=== PATIENT | male | born 1995 | race Caucasian/White ===

== ENCOUNTER 2022-08-06 14:28 | Day surgery (SDC) | payer BC, SELFPAY ==
[2022-08-06] VITALS (30 sets, daily range): BP systolic 116–142; BP diastolic 63–86; PULSE 64–168; RESP 16–18; TEMP 36.4–37; O2SAT 84–100; BMI 22.5
--- NOTE | 2022-08-06 15:42 | CRLHL7_ITS ---
For Patients: As a result of the Century Cures Act, medical imaging exams and procedure reports are released immediately into your electronic medical record. You may view this report before your referring provider. If you have questions, please contact your health care provider. INDICATION: Supraumbilical midline hernia. TECHNIQUE: CT abdomen and pelvis without contrast. COMPARISON: None. FINDINGS: Lower chest: No focal consolidation. Evaluation of solid organs is limited secondary to lack of IV contrast administration. Liver: No suspicious focal hepatic lesion. Gallbladder and bile ducts: Unremarkable. Pancreas: Unremarkable. Spleen: Unremarkable. Adrenal glands: Unremarkable. Kidneys: No renal calculi or hydronephrosis bilaterally. Retroperitoneum: No lymphadenopathy. Bowel and mesentery: Normal appendix. Supraumbilical ventral abdominal wall hernia with narrow neck containing short-segment of small bowel, with obstructive effect resulting in upstream small bowel obstruction. Mild mesenteric edema, likely reactive. No pneumoperitoneum. Bladder: Unremarkable for degree of distension. Reproductive organs: No prostatomegaly. Pelvic lymph nodes: No lymphadenopathy. Vessels: Unremarkable for unenhanced study. Abdominal wall: Ventral abdominal hernia as above. Bones: No suspicious/aggressive focal osseous lesion. IMPRESSION: Small-bowel containing supraumbilical ventral abdominal wall hernia with a narrow neck, resulting in high-grade small bowel obstruction. Please note that all CT scans at this facility use dose modulation, iterative reconstruction, and/or weight-based dosing when appropriate to reduce radiation dose to as low as reasonably achievable. Dictated by Michael Murphy MD @ 08/06/2022 5:10:31 PM (Electronically Signed)
--- NOTE | 2022-08-06 16:29 | ED.ABDPAIN ---
HPI - Abdominal Pain General Chief Complaint: Abdominal Pain Stated Complaint: Hernia Time Seen by Provider: 08/06/22 14:58 History of Present Illness HPI narrative: 27-year-old young man presenting to the emergency department with complaint of mid abdominal pain consistent with history of ventral wall supraumbilical hernia. Started to have more pain this morning and just has not really gone away. Sharp, colicky. Is having some ache in his low back as well. Usually he can reduce this fairly easily on his own, but not today. No radicular symptoms into extremities. He did manage a bowel movement earlier today but this did not change any of his discomfort. He was evaluated in Clinic[facility]Urgent Care in [place] where he works and apparently a surgeon was curb sided recommending to be seen in emergency department for potential imaging. He has had this hernia known for years and has been more uncomfortable more frequently over the last week or so. is not nauseated, has not been vomiting. No fever. Back discomfort is not exacerbated with movement. Has not passed gas over the last 3 or 4 hours now. Related Data Home Medications Medication Instructions Recorded Confirmed omeprazole 40 mg capsule,delayed 40 mg PO DAILY 08/06/22 08/06/22 release Allergies Allergy/AdvReac Type Severity Reaction Status Date / Time No Known Drug Allergies Allergy Verified 08/06/22 14:43 Review of Systems Status of ROS Reports: 6 or more systems reviewed and unremarkable except as noted in History and below [facility] Social History Smoking Status: Never smoker Do you use any of these nicotine containing products: None Second hand tobacco smoke exposure: No How often do you have a drink containing alcohol: 2-3 times a week How many standard drinks containing alcohol do you have on a typical day: 1 or 2 AUDIT-C Alcohol total score: 3 Non-prescribed substance use: denies use Exam Narrative: Exam Narrative: Pleasant. NAD. Breathing easily. Sits and transitions without difficulty. Lungs appear to be clear. Skin is warm and dry. Well-perfused peripherally. Heart is in a regular rate and rhythm. Abdomen does appear to have some bowel sounds. Distant. There is a racquetball sized soft swelling in the mid ventral abdomen superior to the umbilicus. No inflammatory changes. Skin is quite dry. Not particularly tender to palpation. Const: Vital Signs, click to edit/add: Vital Signs - 24 hr 08/06/22 14:39 Temperature 98.4 F Pulse Rate [Pulse Oximeter] 77 Respiratory Rate 18 Blood Pressure [Le ft Upper Arm] 131/81 Pulse Oximetry 96 Oxygen Delivery Me thod Room Air Documenting provider has reviewed patient's vital signs: yes Course Vital Signs Vital signs: Initial Vital Signs Temperature 98.4 F 08/06/22 14:39 Temperature Source Temporal Artery Scan 08/06/22 14:39 Pulse Rate 77 08/06/22 14:39 Respiratory Rate 18 08/06/22 14:39 Blood Pressure 131/81 08/06/22 14:39 Blood Pressure Mean 97 08/06/22 14:39 Blood Pressure Position Supine 08/06/22 14:39 Pulse Oximetry 96 08/06/22 14:39 Oxygen Delivery Method Room Air 08/06/22 14:39 Vital Signs Temperature 98.4 F 08/06/22 14:39 Pulse Rate 77 08/06/22 14:39 Respiratory Rate 18 08/06/22 14:39 Blood Pressure 131/81 08/06/22 14:39 Pulse Oximetry 96 08/06/22 14:39 Oxygen Delivery Method Room Air 08/06/22 14:39 Temperature 98.4 F 08/06/22 14:39 Pulse Rate 77 08/06/22 14:39 Respiratory Rate 18 08/06/22 14:39 Blood Pressure 131/81 08/06/22 14:39 Pulse Oximetry 96 08/06/22 14:39 Oxygen Delivery Method Room Air 08/06/22 14:39 MDM - Abdominal Pain MDM Narrative Medical decision making narrative: I did spend some time trying to reduce what appears to be a ventral abdominal hernia. Brad tolerated this quite well. Was able to palpate quite firmly but unable to reduce this. Subsequently called to our surgeon to arrange next step in cares. Will proceed per their recommendation with CT imaging. I had initially ordered abdomen CT. 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 By my read images do show bowel extending through a little right of midline opening. This would look to be an incarceration resulting in sbo. I do not see much inflammatory changes. There is rectosigmoid gas. Pending Radiology over-read. I did return to attempt again reduction moving a bit more right of center but without success. Our surgeon is heading in having reviewed these images noting incarcerated hernia and will be arriving to evaluate further. Place IV normal saline anticipation of potential intervention. Does report increased pain since my manipulation earlier. Radiology over-read IMPRESSION: Small-bowel containing supraumbilical ventral abdominal wall hernia with a narrow neck, resulting in high-grade small bowel obstruction. Anticipating going to surgery shortly for reduction/repair. Discharge Plan Discharge Clinical Impression: Incarcerated hernia, Small bowel obstruction Patient Disposition: Admitted As Inpatient Condition: Stable
[2022-08-06] MEDS: 0.9 % SODIUM CHLORIDE 1000 ml 1,000 ML IV (16:45)
--- NOTE | 2022-08-06 17:25 | P.GSHP_ITS ---
History of Present Illness History of Present Illness Date Seen: 08/06/22 Chief complaint: Hernia Narrative: Brad Peace is a 27 year old male who presented to the emergency department with increasing pain over a known abdominal hernia. He states that he has known that he has a hernia just above his belly button for years and that usually he is able to reduce it easily himself. This morning he woke up, felt the bulge and noted some increased tenderness to the area. He did try to reduce the hernia, but was unsuccessful. He tried to go to the bathroom, as he thought he might be a little constipated and he was able to have a bowel movement, but this did not improve his symptoms. He does report some nausea, denies any emesis. He does state that he has been unable to pass gas like he normally does. His has however had several bowel movements with his last bowel movement about 4 hours earlier. He last ate around noon. No previous surgical history. He is a nonsmoker. Review of Systems Status of ROS: Reports: 6 or more systems reviewed and unremarkable except as noted in History and below [facility] Social History Smoking Status: Never smoker Do you use any of these nicotine containing products: None Second hand tobacco smoke exposure: No How often do you have a drink containing alcohol: 2-3 times a week How many standard drinks containing alcohol do you have on a typical day: 1 or 2 AUDIT-C Alcohol total score: 3 Non-prescribed substance use: denies use Meds Home Medications and Allergies Home Medications Medication Instructions Recorded Confirmed Type omeprazole 40 mg capsule,delayed 40 mg PO DAILY 08/06/22 08/06/22 History release Allergies Allergy/AdvReac Type Severity Reaction Status Date / Time No Known Drug Allergies Allergy Verified 08/06/22 14:43 Exam Narrative: Exam Narrative: General: Alert and oriented, no acute distress. Nontoxic in appearance Respiratory: Equal breath rise bilaterally, maintained on room air CV: Regular rhythm rate, well perfused Abdomen: Soft, tender to palpation supraumbilical where a hernia sac is palpated. A reduction at bedside was attempted and not successful. There is tenderness during manipulation of the hernia sac. No overlying skin changes. No guarding or rebound. Const: Vital Signs, click to edit/add: Vital Signs - 24 hr 08/06/22 14:39 Temperature 98.4 F Pulse Rate [Pulse Oximeter] 77 Respiratory Rate 18 Blood Pressure [Le ft Upper Arm] 131/81 Pulse Oximetry 96 Oxygen Delivery Me thod Room Air Results Results Abdomen CT scan report/results: report reviewed and image reviewed Assessment and Plan Assessment and plan (1) Incarcerated hernia: Status: Acute Plan Patient is an otherwise healthy 27-year-old male who presents with evidence of an incarcerated hernia and associated high-grade small-bowel obstruction. Vital signs stable and patient is nontoxic in appearance. Patient has been symptomatic since this morning. A reduction was attempted at bedside, but unsuccessful. Risks and benefits of operative intervention were discussed at length with the patient. Risks included but was not limited to: Bleeding, infection, risk of damage to surrounding structures, possible need for additional procedures, risk of recurrence and postoperative complications such as pneumonia, pulmonary emboli or [place]. we also reviewed the expected recovery, specifically we discussed the lifting restrictions after any hernia repair of no lifting greater than 20 lb for 6 weeks. Due to the evidence of incarcerated small bowel, I also reviewed with the patient the possibility of a small-bowel resection. If a resection is needed, or there is evidence of compromised bowel he does understand that I would elect to not use mesh in that situation given the high risk of infection. We reviewed the recurrence rate of a hernia with primary repair (33%) vs with mesh (5%). All questions and concerns were addressed with the patient agreeing to proceed. -OR for open ventral hernia repair, possible use of mesh, possible small bowel resection. - plan for extended recovery in Med Surg post op - pre op Antibiotics - NPO, IVF
[2022-08-06] MEDS: ONDANSETRON 2 MG/ML inj 4 MG IVP (17:42)
[2022-08-06 18:09] LABS: SARS PCR* Negative SARS-CoV-2 (Negative)
[2022-08-06] MEDS: LACTATED RINGERS 1000 ML 1,000 ML 100 ML IV (18:15)
[2022-08-06] MEDS: CEFAZOLIN 2 GM INJ IVP (18:25)
[2022-08-06] MEDS: BUPIVACAINE 0.25% 30 ML INJECTION (19:00)
--- NOTE | 2022-08-06 19:40 | P.GSOP_ITS ---
Operative Note Date of procedure: 08/06/22 Pre-op diagnosis: Incarcerated ventral hernia Post-op diagnosis: Incarcerated ventral hernia Type of Procedure: Open ventral hernia repair, primary repair Indications: Patient is a 27-year-old male who presented to clinic with a one-day history of increasing pain at a previously known hernia site. Workup was obtained, inc luding CT scan which demonstrated incarcerated small bowel and associated high- grade small-bowel obstruction. The hernia was unable to be reduced at bedside, so surgery was recommended. Risks and benefits of operative intervention were discussed at length with the patient. Risks included but was not limited to: Bleeding, infection, risk of damage to surrounding structures, possible need for additional procedures, risk of recurrence and postoperative complications such as pneumonia, pulmonary emboli or [place]. All questions and concerns were addressed with the patient agreeing to proceed. Procedure Description: After discussing the risks and benefits of the procedure, the patient signed informed consent.? The operative site was marked and the patient was brought to the operating room and placed on the operating table in supine position.? Care was taken to pad the patient's pressure points.?? The patient was then intubated by anesthesia.?? The operative site was then prepped and draped in the usual sterile fashion.? A time-out was then performed. A mixture of lidocaine and Marcaine was used to anesthetize the surgical field. A midline incision was made supraumbilical over the hernia bulge. Dissection was carried down carefully with cautery through subcutaneous tissue. The hernia sac was encountered. Evidence of murky fluid and fat necrosis within the hernia sac. Using cautery the hernia sac was circumferentially dissected down to fascia. The hernia sac was sharply opened and the murky fluid evacuated. The incarcerated small bowel was evaluated and appeared healthy. The fascial defect was extended superiorly approximately 1 cm to allow for reduction of the small bowel and associated mesentery. The hernia sac was transected from the fascial edges and passed off on the back table to be discarded. The resulting fascial defect measured 4 cm x 3 cm in size. Due to the presence of murky intra- abdominal fluid, as well as necrotic fat within the operative field the decision was made for primary closure of the defect given the increased risk of infection with using permanent mesh. The fascial edges were cleared of subcutaneous fat with electrocautery. The defect was closed with interrupted 0 Nurolon suture. The incision was then irrigated with a mixture of Betadine and saline. The fascia was anesthetized with lidocaine and Marcaine. The subcutaneous fat and dermal edges were brought together with interrupted 3 0 Vicryl. The incision was closed with running 4-0 Monocryl subcuticular suture. ? Sterile dressings were then applied. An abdominal binder was placed around the patient. ? The patient was then woken and transported to the recovery area in stable condition. ? The patient tolerated the procedure well. Findings: Ventral hernia with incarcerated small bowel. Repaired primarily. Anesthesia: GETA Surgeon: Zohreh Moctezuma MD Estimated blood loss (mL): 10 Condition: stable Disposition: floor
--- NOTE | 2022-08-06 19:42 | W.ANESCHARGE ---
Anesthesia Charges Start Date/Time Anesthesia Start Date: 08/06/22 Anesthesia Start Time: 18:15 Stop Date/Time Anesthesia Stop Date: 08/06/22 Anesthesia Stop Time: 19:38 Summary Emergency: REPORTS ANALYST
[2022-08-06] MEDS: LACTATED RINGERS 1000 ML 1,000 ML 125 ML IV (23:01)
[2022-08-07] VITALS: BP 118/60; PULSE 60; RESP 16; TEMP 36.5; O2SAT 91
[2022-08-07 01:00] VITALS: BP 106/63; PULSE 60; RESP 16; O2SAT 92
[2022-08-07 02:16] VITALS: BP 104/65; PULSE 60; RESP 16; TEMP 36.4; O2SAT 92
[2022-08-07 03:00] VITALS: BP 117/78; PULSE 76; RESP 16; O2SAT 93
--- NOTE | 2022-08-07 06:38 | PC.NURSE ---
Pt alert and oriented x3. Afebrile. Pt reports 1/10 pain in abdomen, pain medications offered and education given on pain management, pt refused stating ?I am fine.??Pt?s abdominal dressing is CDI. Pt denies chest pain, N/V, and SOB. Pt is voiding, tolerating a regular diet, up IND. ?
[2022-08-07] MEDS: LACTATED RINGERS 1000 ML 1,000 ML 125 ML IV (06:49)
[2022-08-07 07:28] VITALS: BP 115/64; PULSE 66; RESP 16; TEMP 36.6; O2SAT 94
--- NOTE | 2022-08-07 08:35 | P.DS_ITS ---
DS: Providers Provider Date Seen: 08/07/22 Date of admission: 08/06/22 20:30 Primary care physician: LEONELA Morse Admitting Clinician: Zohreh Moctezuma MD Attending Physician on discharge: Zohreh Moctezuma MD DS: Summary Hospital Course Hospital Course: Patient was admitted to the hospital with evidence of a ventral hernia incarcerated with small bowel. There was evidence of a high-grade small bowel obstruction associated with this. Attempts at reduction in the emergency department were unsuccessful, so patient was taken to the operating room. An open ventral hernia repair was performed. The bowel was viable, so no resection was needed. Due to murky fluid within the operating field and risk of translocation the decision was made for primary repair, no mesh was placed. At the time of discharge patient was tolerating regular diet, voiding indepe ndently and ambulating without difficulty. Pain was controlled with oral pain medication. Time Spent with Patient Time attestation: Total time spent providing and/or coordinating discharge services: Exam Const: Vital Signs, click to edit/add: Vital Signs - 24 hr 08/06/22 14:39 08/06/22 14:49 08/06/22 15:00 Temperature 98.4 F Pulse Rate 75 67 Pulse Rate [Pulse Oximeter] 77 Pulse Rate [Right Pulse Oximeter] Respiratory Rate 18 Blood Pressure Blood Pressure [Le ft Arm] Blood Pressure [Le ft Upper Arm] 131/81 Pulse Oximetry 96 96 96 Oxygen Delivery Me thod Room Air Oxygen Flow Rate 08/06/22 15:01 08/06/22 15:15 08/06/22 15:30 Temperature Pulse Rate 70 70 66 Pulse Rate [Pulse Oximeter] Pulse Rate [Right Pulse Oximeter] Respiratory Rate Blood Pressure 122/82 Blood Pressure [Le ft Arm] Blood Pressure [Le ft Upper Arm] Pulse Oximetry 97 97 99 Oxygen Delivery Me thod Oxygen Flow Rate 08/06/22 15:31 08/06/22 16:01 08/06/22 16:32 Temperature Pulse Rate 84 Pulse Rate [Pulse Oximeter] Pulse Rate [Right Pulse Oximeter] Respiratory Rate Blood Pressure 133/81 142/81 H 139/86 Blood Pressure [Le ft Arm] Blood Pressure [Le ft Upper Arm] Pulse Oximetry 99 Oxygen Delivery Me thod Oxygen Flow Rate 08/06/22 16:44 08/06/22 16:45 08/06/22 17:00 Temperature Pulse Rate 168 H 90 73 Pulse Rate [Pulse Oximeter] Pulse Rate [Right Pulse Oximeter] Respiratory Rate Blood Pressure Blood Pressure [Le ft Arm] Blood Pressure [Le ft Upper Arm] Pulse Oximetry 99 100 99 Oxygen Delivery Me thod Oxygen Flow Rate 08/06/22 17:01 08/06/22 17:16 08/06/22 17:38 Temperature Pulse Rate 94 107 H Pulse Rate [Pulse Oximeter] Pulse Rate [Right Pulse Oximeter] Respiratory Rate Blood Pressure 134/83 Blood Pressure [Le ft Arm] Blood Pressure [Le ft Upper Arm] Pulse Oximetry 99 99 84 L Oxygen Delivery Me thod Oxygen Flow Rate 08/06/22 17:47 08/06/22 19:35 08/06/22 20:05 Temperature 98.2 F 98.6 F Pulse Rate 80 71 68 Pulse Rate [Pulse Oximeter] Pulse Rate [Right Pulse Oximeter] Respiratory Rate 16 16 Blood Pressure 126/66 116/63 Blood Pressure [Le ft Arm] Blood Pressure [Le ft Upper Arm] Pulse Oximetry 98 94 96 Oxygen Delivery Me thod Nasal Cannula Room Air Oxygen Flow Rate 4 08/06/22 19:40 08/06/22 19:45 08/06/22 19:50 Temperature Pulse Rate 76 64 65 Pulse Rate [Pulse Oximeter] Pulse Rate [Right Pulse Oximeter] Respiratory Rate 16 16 16 Blood Pressure 123/66 125/72 126/71 Blood Pressure [Le ft Arm] Blood Pressure [Le ft Upper Arm] Pulse Oximetry 97 98 98 Oxygen Delivery Me thod Nasal Cannula Oxygen Flow Rate 3 08/06/22 19:55 08/06/22 20:00 08/06/22 20:13 Temperature 97.6 F Pulse Rate 71 72 82 Pulse Rate [Pulse Oximeter] Pulse Rate [Right Pulse Oximeter] Respiratory Rate 16 16 18 Blood Pressure 120/74 116/76 Blood Pressure [Le ft Arm] 131/80 Blood Pressure [Le ft Upper Arm] Pulse Oximetry 97 95 Oxygen Delivery Me thod Nasal Cannula Nasal Cannula Room Air Oxygen Flow Rate 2 1 08/06/22 20:30 08/06/22 20:13 08/06/22 20:45 Temperature 97.7 F 97.6 F 97.6 F Pulse Rate Pulse Rate [Pulse Oximeter] Pulse Rate [Right Pulse Oximeter] 70 82 68 Respiratory Rate 16 18 16 Blood Pressure Blood Pressure [Le ft Arm] 126/82 131/80 129/78 Blood Pressure [Le ft Upper Arm] Pulse Oximetry 94 94 94 Oxygen Delivery Me thod Room Air Room Air Room Air Oxygen Flow Rate 08/06/22 20:15 08/06/22 20:00 08/06/22 21:30 Temperature 97.8 F 97.5 F L 97.7 F Pulse Rate Pulse Rate [Pulse Oximeter] Pulse Rate [Right Pulse Oximeter] 75 70 73 Respiratory Rate 16 18 16 Blood Pressure Blood Pressure [Le ft Arm] 129/82 126/72 131/75 Blood Pressure [Le ft Upper Arm] Pulse Oximetry 93 93 92 Oxygen Delivery Me thod Room Air Room Air Room Air Oxygen Flow Rate 08/06/22 22:00 08/06/22 23:00 08/07/22 00:00 Temperature 97.6 F 97.8 F 97.7 F Pulse Rate Pulse Rate [Pulse Oximeter] Pulse Rate [Right Pulse Oximeter] 74 74 60 Respiratory Rate 16 16 16 Blood Pressure Blood Pressure [Le ft Arm] 122/66 139/82 118/60 Blood Pressure [Le ft Upper Arm] Pulse Oximetry 94 93 91 Oxygen Delivery Me thod Room Air Room Air Room Air Oxygen Flow Rate 08/07/22 01:00 08/07/22 02:16 08/07/22 03:00 Temperature 97.6 F Pulse Rate Pulse Rate [Pulse Oximeter] Pulse Rate [Right Pulse Oximeter] 60 60 76 Respiratory Rate 16 16 16 Blood Pressure Blood Pressure [Le ft Arm] 106/63 104/65 117/78 Blood Pressure [Le ft Upper Arm] Pulse Oximetry 92 92 93 Oxygen Delivery Me thod Room Air Room Air Room Air Oxygen Flow Rate 08/07/22 07:28 Temperature 97.9 F Pulse Rate Pulse Rate [Pulse Oximeter] Pulse Rate [Right Pulse Oximeter] 66 Respiratory Rate 16 Blood Pressure Blood Pressure [Le ft Arm] 115/64 Blood Pressure [Le ft Upper Arm] Pulse Oximetry 94 Oxygen Delivery Me thod Room Air Oxygen Flow Rate DS: Data Data Completed and Pending Labs on day of discharge: Labs from last 24 hours 08/06/22 17:13 SARS-CoV-2 (PCR) Negative SARS-CoV-2 Discharge Plan Discharge Disposition: Home, Self-Care Date of Admission: 08/06/22 20:30 Attending Provider on Discharge: Zohreh Moctezuma Primary Care Provider: Yumiko Rebollar Condition: Stable Anticipated Discharge Date/Time: 08/07/22 08:31 Discharge Medications: New oxycodone 5 mg tablet 5 mg PO Q6H PRN (Reason: pain) Qty: 10 0RF senna 8.6 mg capsule 8.6 mg PO DAILY PRN (Reason: constipation) Qty: 90 0RF Continued omeprazole 40 mg capsule,delayed release(DR/EC) 40 mg PO DAILY Discharge Orders: Discharge Order (Routine); Ordered 08/07/22 Ordered By: Zohreh Moctezuma Patient Education: Open Herniorrhaphy (DC), Post-Operative Instructions: Hernia Repair Additional Instructions: Activity as tolerated. Avoid strenuous activity. No lifting greater than 20 lb for 6 weeks. You have an abdominal binder in place. Continue to wear this abdominal binder as much as possible for the next 2 weeks. This helps to decrease a seroma, or fluid accumulating underneath your incision. You were prescribed a narcotic pain medication. In addition you may supplement with Tylenol and/or ibuprofen. Be sure to not exceed greater than 4 g of Tylenol in a 24 hour period. While on narcotic pain medicine please take stool softeners. A prescription of stool softeners has been sent to the pharmacy. Stop if having greater than 2 stools per day. You can remove your outer bandage tomorrow. Okay to start showering right away, do not soak in a bath or swim for 2 weeks. Activity Level: No strenuous activity Discharge Diet: Regular Follow Up Appointments: Zohreh Moctezuma MD [Staff Physician] - [facility] Discharge Comments: Please make a phone follow-up appointment for 2 weeks.
[2022-08-07 11:00] VITALS: BP 116/63; PULSE 82; RESP 16; TEMP 36.6
--- NOTE | 2022-08-07 11:01 | PC.NURSE ---
Discharge: Patient denied pain throughout stay, vitals stable and WNL, seen by this morning. Passing gas, no stool yet. Denies nausea, tolerating regular diet well. dressing dry and intact over abdomen with abdominal binder in place, bowel sounds active. IV removed with catheter intact. Discharge instructions, follow up and medication orders reviewed, questions answered as needed. Patient discharged to home @ 1100, friend here to drive.
== END 2022-08-07 11:00 | disposition home or self-care (01) ==
LOC: ED 17:45 → SS 18:23 → MEDSURG 08-07 08:35
PROVIDERS: Emergency Provider Family Medicine; PCP Physician Assistant; Visit Provider Surgery
PROC: (CPT 49594; principal; 2022-08-06 18:00)
DX: K43.6 Other and unspecified ventral hernia with obstruction, without gangrene (principal)
CPT/HCPCS: 49594; 00752; 74150; 74176; 87635; 99140; 99284; 99285; A4467; J0330; J0690; J1100; J1885; J2250; J2405; J2704; J2710; J3010; J3490; J7030; J7120

== ENCOUNTER 2024-10-01 17:04 | Outpatient (CLI) | payer OTHER, BC, SELFPAY | END 2024-10-01 17:05 | disposition home or self-care (01) | LOC: AMB 10-02 10:46 | PROVIDERS: PCP Physician Assistant; Visit Provider Emergency Medicine Emergency Medical Services | DX: S29.9XXA Unspecified injury of thorax, initial encounter (principal); V43.54XA Car driver injured in collision with van in traffic accident, initial encounter; Y92.410 Unspecified street and highway as the place of occurrence of the external cause | CPT/HCPCS: A0425; A0427 ==

== ENCOUNTER 2024-10-01 17:45 | Emergency (ER) | payer OTHER, BC, SELFPAY ==
--- OUTSIDE RECORDS SUMMARY | 2024-10-01 17:46 | XMS_ITS | Clinical Summary ---
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 0 1 Active crisaborole 2 % ointIndications: Eczema, unspecified type,Ichthyosis Apply topically to affected area(s) two times daily. 100 g 8 3 Active pimecrolimus (ELIDEL) 1 % creamIndications :Eczema, unspecified type,Ichthyosis Apply topically to affected area(s) two times daily. Face and ears 100 g 8 3 Active omeprazole (PRILOSEC) 40 mg Delayed-Release capsuleIndicatio ns:Gastroesophag eal reflux disease, unspecified whether esophagitis present Take 1 Capsule (40 mg) by mouth once daily before a meal. 90 Capsule 4 Active Active Problems Problem Noted Date Diagnosed Date Erectile dysfunction 03/13/2022 Family history of heart disease 01/22/2018 Obesity, Class II, BMI 35-39.9 01/22/2018 Gastroesophageal reflux disease 04/06/2015 Overview (09/27/2022): EGD 02/2018 esophageal ulcer, reflux EGD 09/2021 reflux, 4 cm HH Resolved Problems Problem Noted Date Diagnosed Date Resolved Date Unspecified asthma(493.90) 08/23/2006 0 11/18/2012 Immunizations Immunization Administration Dates Next Due HPV 9 (Gardasil 9) 04/26/2016,09/21/2015 Human Papilloma Virus Vaccine 11/24/2015 Influenza A (H1N1), Inactivated 04/29/2009 Influenza, IIV3 (Age 6-35 mos) 02/02/2009 Influenza, IIV4 02/06/2022, 8,03/04/2017,02/26,01/31/2015 Influenza, IIV4 (=>6mos) MDV 03/03/2019,03/04/20 17 Influenza, Injectable, Mdck, Quadrivalent, W/preservative 02/21/2021 Influenza,CCIIV4 PRESERV FREE 02/23/2020 MENINGOCOCCAL VACCINE 2 VIAL 2MO-55YO (MENVEO) 09/21/2015 Td (Age >=7 Years) 08/01/2006 Td, Preservative Free (age >= 7 Years) 7 Tdap 09/21/2015 Family History Medical History Relation Name Comments Diabetes Father borderline Heart Disease Father stents Hyperlipidemia Father had in past Hypertension Father Asthma Mother Relation Name Status Comments Father Mother Social History Tobacco Use Types Packs/Day Years Used Date Smoking Tobacco: Never Smokeless Tobacco: Never Tobacco Cessation:Counseling Given: Yes Comments:both parents smoke Alcohol Use Standard Drinks/Week Comments No 0 (1 standard drink = 0.6 oz pur e alcohol) PHQ-2 Answer Date Recorded PHQ-2 TOTAL SCORE 0 02/20/2022 Social Connections Answer Date Recorded Frequency of Communication with Friends and Fami ly Not on file 10/12/2023 Financial Resource Strain Answer Date R ecorded Difficulty of Paying Living Expenses 3 09/18/2022 Difficulty of Paying Living Expenses Not on file 09/18/2022 Food Insecurity Answer Date Recorded Worried About Running Out of Food in the Last Ye ar 1 09/18/2022 Transportation Needs Answer Date Record ed Lack of Transportation (Medical) 1 09/18/2022 Housing Stability Answer Date Recorded Unable to Pay for Housing in the Last Year 1 09/18/2022 Sex and Gender Information Value Date Recorded Sex Assigned at Male 02/02/2021 8:31 PM CDT Legal Sex Male 5:51 AM [employer] 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[employer] Gender Identity Male 02/02/2021 8:31 PM CDT Sexual Orientation Straight 02/02/2021 8: 31 PM CDT Obstetrics History Last Filed Vital Signs Vital Sign Reading Time Taken Comments Blood Pressure 113/59 09/26/2022 10:02 AM CDT Pulse 72 09/26/2022 10:02 AM CDT Temperature 37.3 C (99.1 F) 09/18/2022 6:24 PM CDT Respiratory Rate 16 09/26/2022 10:0 2 AM CDT Oxygen Saturation 96% 09/26/2022 10: 02 AM CDT Inhaled Oxygen Concentration - - Weight 122.6 kg (270 lb 3.2 oz) 09/25/2022 1:42 PM CDT Height 188 cm (6' 2) 03/02/2021 8:40 AM CDT Body Mass Index 34.69 03/02/2021 8:40 AM CDT Plan of Treatment Health Maintenance Due Date Last Done Comments Depression screening for age 12+ 2006 HIV for age 15-65 2009 Hepatitis B series for 19+ (1 of 3 - 19+ 3-dose series) 2013 BMI (ht and wt on same day) for age 18+ 06/11/2020 06/11/2019, 08/22/2018, 01/22/2018, Additional history exists COVID-19 vaccine series ( season) 2024 09/16/2020, 08/19/2020 Influenza Vaccine (Season Ended) 2025 02/06/2022, 02/21/2021, 02/23/2020, Additional history exists Tetanus booster 09/20/2025 09/21/2015, 07/12, 08/01/2006 Tdap Completed 09/21/2015 Hepatitis C screening for age 18-79 Completed 03/13/2022 Pneumococcal series for age 6-49 Aged Out No longer eligible based on patient's age to complete this topic Procedures Procedure Name Priority Date/Time Associated Diagnosis Comments ANTI HCV Routine 03/13/2022 11:23 AM CDT Need for hepatitis C screening test from Last 3 Months or Most Recently Relevant to Health Maintenance Results * ANTI HCV (03/13/2022 11:23 AM CDT) HEPATITIS C ANTIBODY Non-React reji Non-React reji 03/14/2022 1:03 PM CDT [facility] [facility] Comment:Antibodies to HCV no t detected; does not exclude the possibility of exposure to HCV. Blood BLOOD SPECIMEN / Unknown Venipuncture / Unknown 03/13/2022 11:23 AM CDT 03/13/2022 11:23 AM CDT us Yumiko GIPSON SEND OUTS Final Resu lt [facility] 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 PCP - General 05/19/24
[2024-10-01 17:51] VITALS: BP 134/96; PULSE 104; RESP 20; TEMP 37.1; O2SAT 95; BMI 35.9
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
[2024-10-01 18:48] VITALS: RESP 11
[2024-10-01 19:00] VITALS: PULSE 95; RESP 13; O2SAT 97
[2024-10-01 19:02] VITALS: BP 150/88; PULSE 97; RESP 14; O2SAT 97
[2024-10-01 19:15] VITALS: PULSE 95; RESP 17; O2SAT 95
== END 2024-10-01 19:28 | disposition home or self-care (01) ==
LOC: ED 19:02
PROVIDERS: Emergency Provider Family Medicine; PCP Physician Assistant
DX: R07.89 Other chest pain (principal); M25.562 Pain in left knee; V43.52XA Car driver injured in collision with other type car in traffic accident, initial encounter
CPT/HCPCS: 71046; 99283; 99284